=== PATIENT | male | born 1945 | race Caucasian/White ===

== ENCOUNTER 2018-09-22 12:38 | Inpatient (IN) | payer BC, MEDICARE ==
[~2018-09-22] VITALS: Ht 180.3 cm; Wt 95.6 kg
[~2018-09-22 12:38] MED LIST: ASPI-831 PO; ATOR10TA65 PO; FINA5TAB PO; METO-335 PO
[2018-09-22 12:40] VITALS: Ht 180.3 cm; Wt 95.6 kg
[2018-09-22] MEDS ORDERED: ACETAMINOPHEN 650 MG SUPP PR STA (12:48)
[2018-09-22] MEDS ORDERED: CEFEPIME 2GM/50 ML (PMX) 50 ML IVPB STA (12:48)
[2018-09-22] MEDS ORDERED: SODIUM CHLORIDE 0.9% 1L BAG IV* STA (12:48)
[2018-09-22] MEDS ORDERED: IBUPROFEN 800 MG TAB PO ONE (13:00)
[2018-09-22] MEDS ORDERED: VANCOMYCIN 1 GM (PMX) 250 ML IVPB ONE (13:00)
[2018-09-22] MEDS ORDERED: ACETAMINOPHEN 500 MG TAB PO STA (13:02)
[2018-09-22] MEDS ORDERED: ACETAMINOPHEN 500 MG TAB ONE (13:05)
[2018-09-22] MEDS ORDERED: IPRATROPIUM (NEB) 0.5 MG/2.5 ML AMP INH STA (13:21)
[2018-09-22] MEDS ORDERED: LEVALBUTEROL (NEB) 1.25 MG/0.5 ML AMP INH STA (13:21)
[2018-09-22] MEDS ORDERED: ATOR10TA65 PO (13:59)
[2018-09-22] MEDS ORDERED: METO-336 PO (14:00)
[2018-09-22] MEDS ORDERED: FINA5TAB4 PO (14:00)
[2018-09-22] MEDS ORDERED: ALFU10TA2 PO (14:01)
[2018-09-22] MEDS ORDERED: COMBIG5 LEFT EYE (14:02)
[2018-09-22] MEDS ORDERED: ROCKLATAN LEFT EYE (14:07)
[2018-09-22] MEDS ORDERED: ONDANSETRON 4 MG INJ IV PRN (14:30)
--- NOTE | 2018-09-22 15:15 | CONS ---
Assessment/Plan Assessment/Plan Hospital Course (Demo Recall) assessment/impression - sepsis due to CAP - CAP probably following viral bronchitis - acute hypoxic resp failure - L glaucoma - h/o R retinal detachment recommendations - pending: blood cultures x2 - ordered/reordered: lactic acid, procalcitonin, urine legionella antigen, mycoplasma serology, [employer] swab for RSV, custom viral panel - I recommend ceftriaxone and azithromycin (09/22/2018-) management d/w Pt, his , Dr. 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 On 09/15/2018 Pt started having fever as high as 103F, malaise, dry cough and dyspnea. Pt denies sick contact or recent travel prior to the onset of these Sx. He denies sinus congestion, ear pain, sore throat, pleuritic chest pain, sputum production or hemoptysis. Earlier this week, Pt was seen by his PMD, and was started taking PO Augmenin. He took three doses and came to see me in the office on 09/21/2018 (yesterday). At that point, Pt had temp 99.8F. His lab was significant for WBC 11.3 with 81.5% neutrophils, Hgb 12.3 and platelet of 323. His CXR showed atelectasis vs. earlier infiltrate at b/l base. I instructed Pt to continue taking PO Augmentin. This morning, Pt started to get worse: high fever again, dry cough and dyspnea. I instructed Pt to present at ER. Here he had 103.5F, acute hypoxic resp failure and WBC 13.2. Pt was given a dose of IV vancomycin and cefepime. I saw this Pt for continuity of care, and Dr. Ott kindly agreed to serve as his admitting physician. Constitutional: febrile, poor po Eyes: no complaints ENT: no complaints Respiratory: cough, shortness of breath; No pleuritic pain, No sputum Cardiovascular: no complaints Gastrointestinal: no complaints Genitourinary: no complaints Musculoskeletal: other (generalized myalgia) Skin: no complaints Neurologic: no complaints Lymphatic: no complaints Past Medical History Medical History: other (essential HTN, R retinal detachment, L glaucoma, BPH) Home Meds Reported Medications [Rocklatan ] 0.02% DROPS No Conflict Check, 1 DROP LEFT EYE DAILY 09/22/18 Brimonidine/Timolol* (Combigan*) 5 Ml Drops, 1 DROP LEFT EYE BID, BOTTLE 09/22/18 Alfuzosin Hcl* (Alfuzosin Hcl*) 10 Mg Tab.er.24h, 10 MG PO QHS, #30 TAB.SA 09/22/18 Metoprolol Succinate* (Toprol XL*) 100 Mg Tab.sr.24h, 100 MG PO DAILY, #30 TAB 09/22/18 Finasteride* (Finasteride*) 5 Mg Tablet, 5 MG PO DAILY, TAB 09/22/18 Atorvastatin Calcium (Atorvastatin Calcium) 10 Mg Tablet, 10 MG PO QHS, #30 TAB 09/22/18 Discontinued Reported Medications Atorvastatin Calcium (Atorvastatin Calcium) 10 Mg Tablet, 5 MG PO DAILY 10/07/13 Finasteride* (Proscar*) 5 Mg Tablet, 5 MG PO DAILY 10/07/13 Metoprolol Succinate* (Toprol XL*) 25 Mg Tab.sr.24h, 12.5 MG PO DAILY 10/07/13 Aspirin (Aspirin) 81 Mg Chew, 81 MG PO DAILY 10/07/13 Medications Current Medications Ondansetron HCl (Zofran Inj) 4 mg ER BRIDGE PRN IV NAUSEA/VOMITING; Start 09/22/18 at 14:30; Stop 09/23/18 at 14:29 Acetaminophen (Tylenol Tab) 650 mg ER BRIDGE PRN PO .MILD PAIN 1-3 OR TEMP; Start 09/22/18 at 14:30; Stop 09/23/18 at 14:29 Allergies: Coded Allergies: No Known Allergy (Unverified , 09/22/18) Social History Alcohol Use: occasionally Smoking Status: Never smoker Drug Use: none Other Social History 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 [employer] Exam/Review of Systems Exam Vitals Vital Signs Date Temp Pulse Resp B/P (MAP) Pulse Ox O2 O2 Flow FiO2 Time Delivery Rate 09/22/18 101.7 96 20 125/79 95 Nasal 2.0 14:56 (94) Cannula Constitutional: alert, oriented, well developed Psych: no complaints, nl mood/affect Head: normocephalic, atraumatic Eyes: nl lids, other (R cloudy cornea) ENMT: nl external ears & nose, nl nasal mucosa & septum, mucosa pink and moist Neck: supple, non-tender Respiratory: crackles/rales Cardiovascular: regular rate and rhythm, nl pulses Gastrointestinal: soft, non-tender; No distended Musculoskeletal: nl extremities to inspection Extremities: No edema Neurological: [employer] II-XII intact, nl mental status, nl speech Skin: nl turgor; No rash or lesions Results Result Diagram: 09/22/18 1259 09/22/18 1259 Results 24hrs Laboratory Tests Test 09/22/18 12:59 09/22/18 13:20 09/22/18 13:37 White Blood Count 13.2 H Red Blood Count 4.17 L Hemoglobin 12.1 L Hematocrit 35.8 L Mean Corpuscular Volume 85.9 Mean Corpuscular Hemoglobin 29.0 Mean Corpuscular 33.8 Hemoglobin Concent Red Cell Distribution Width 13.5 Platelet Count 351 Mean Platelet Volume 9.1 Immature Granulocytes % 2.000 H Neutrophils % 80.1 H Lymphocytes % 7.8 L Monocytes % 9.5 Eosinophils % 0.2 Basophils % 0.4 Nucleated Red Blood Cells % 0.0 Immature Granulocytes # 0.260 H Neutrophils # 10.6 H Lymphocytes # 1.0 Monocytes # 1.3 H Eosinophils # 0.0 Basophils # 0.1 Nucleated Red Blood Cells # 0.0 Prothrombin Time 15.2 H Prothrombin Time Ratio 1.2 INR International 1.19 Normalized Ratio Activated 35.9 H Partial Thromboplast Time Sodium Level 135 Potassium Level 4.0 Chloride Level 99 Carbon Dioxide Level 26 Anion Gap 10 Blood Urea Nitrogen 15 Creatinine 0.77 Est Glomerular Filtrat Rate mL/min Glucose Level 132 Calcium Level 8.2 L Total Bilirubin 0.6 Direct Bilirubin 0.00 Indirect Bilirubin 0.6 Aspartate Amino 45 Transf (AST/SGOT) Alanine 38 Aminotransferase (ALT/SGPT) Alkaline Phosphatase 111 Troponin I < 0.012 Total Protein 7.4 Albumin 3.7 Globulin 3.70 H Albumin/Globulin Ratio 1.00 Amylase Level 51 Lipase 25 POC Venous Lactate 1.2 Blood Gas Specimen Source Blood arterial Arterial Blood Date Drawn 09/22/2018 2:05:21 PM Arterial Blood pH 7.491 H (Temp corrected) Arterial Blood pCO2 28.2 L (Temp correct) Arterial Blood pO2 63.6 L (Temp corrected) Arterial Blood HCO3 21.1 L Arterial Blood Base Excess -1.2 Arterial Blood 93.2 L Oxygen Saturation Christofer Test N/A Arterial Blood Gas Right Radial Puncture Site Arterial 0.4 Blood Carboxyhemoglobin Arterial Blood Methemoglobin 0.3 Blood Gas A-a O2 117.2 H Differential Oxyhemoglobin Percent 92.5 L Blood Gas Temperature 37.0 Blood Gas Modality NASAL CANNULA FiO2 30.0 Blood Gas Notified Whom [place] Blood Gas Notified Time 09/22/2018 2:13:51 PM Medications Medication Current Medications Ondansetron HCl (Zofran Inj) 4 mg ER BRIDGE PRN IV NAUSEA/VOMITING; Start 09/22/18 at 14:30; Stop 09/23/18 at 14:29 Acetaminophen (Tylenol Tab) 650 mg ER BRIDGE PRN PO .MILD PAIN 1-3 OR TEMP; Start 09/22/18 at 14:30; Stop 09/23/18 at 14:29 ALANA CLEVELAND M.D. Sep 22, 2018 15:15
[2018-09-22] MEDS: AZITHROMYCIN 500 MG TAB PO SCH (15:57)
--- NOTE | 2018-09-22 16:33 | ERD ---
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 He indicates that his symptoms have been present for 1 week and progressively worsened. The patient was seen earlier this week by his primary care physician and started taking oral Augmentin. He had taken 3 doses and then went to see Dr. Shetty as his primary care physician was unavailable roughly 24 hours prior to arrival. At that time the patient was afebrile and had not taken any antipyretics. He had lab work that was performed. The patient was instructed by Dr. Shetty to continue his Augmentin. However this morning he awoke and stated his symptoms had significantly worsened and therefore he came to the emergency department to be further evaluated. His last dose of acetaminophen was 4 hours prior to arrival. He denies any recent travel or prolonged immobilization. He denies any chest pain or pressure no palpitations. He stated that the shortness of breath is worse with exertion. \ ROS All systems reviewed and are negative except as per history of present illness. Medications Home Meds Reported Medications [Arbelalatan ] 0.02% DROPS No Conflict Check, 1 DROP LEFT EYE DAILY 09/22/18 Brimonidine/Timolol* (Combigan*) 5 Ml Drops, 1 DROP LEFT EYE BID, BOTTLE 09/22/18 Alfuzosin Hcl* (Alfuzosin Hcl*) 10 Mg Tab.er.24h, 10 MG PO QHS, #30 TAB.SA 09/22/18 Metoprolol Succinate* (Toprol XL*) 100 Mg Tab.sr.24h, 100 MG PO DAILY, #30 TAB 09/22/18 Finasteride* (Finasteride*) 5 Mg Tablet, 5 MG PO DAILY, TAB 09/22/18 Atorvastatin Calcium (Atorvastatin Calcium) 10 Mg Tablet, 10 MG PO QHS, #30 TAB 09/22/18 Discontinued Reported Medications Atorvastatin Calcium (Atorvastatin Calcium) 10 Mg Tablet, 5 MG PO DAILY 10/07/13 Finasteride* (Proscar*) 5 Mg Tablet, 5 MG PO DAILY 10/07/13 Metoprolol Succinate* (Toprol XL*) 25 Mg Tab.sr.24h, 12.5 MG PO DAILY 10/07/13 Aspirin (Aspirin) 81 Mg Chew, 81 MG PO DAILY 10/07/13 Allergies Allergies: Coded Allergies: No Known Allergy (Unverified , 09/22/18) PMhx/Soc History of Surgery: Yes (eye surgeries) Anesthesia Reaction: No Hx Neurological Disorder: No Hx Respiratory Disorders: No Hx Cardiac Disorders: Yes (HTN, HIGH CHOL) Hx Psychiatric Problems: No Hx Miscellaneous Medical Probl: No Hx Alcohol Use: No Hx Substance Use: No Hx Tobacco Use: No Smoking Status: Never smoker Physical Exam Vitals Vital Signs Date Temp Pulse Resp B/P (MAP) Pulse Ox O2 O2 Flow FiO2 Time Delivery Rate 09/22/18 101.7 96 20 125/79 95 Nasal 2.0 14:56 (94) Cannula 09/22/18 87 17 93 Nasal 3.0 13:56 Cannula 09/22/18 Nasal 2.0 13:20 Cannula 09/22/18 103.5 104 22 185/87 86 12:40 (119) Physical Exam Constitutional:Well-developed. Well-nourished. In mild respiratory distress HEENT:Normocephalic. Atraumatic. Corneal clouding of right eye from previous retinal detachment. Left pupil is 3 mm and reactive to light. Moist mucous membranes.No tonsillar exudates. Neck: No nuchal rigidity. No lymphadenopathy. No posterior cervical spine tenderness or step-offs. Respiratory: Tachypneic. No rhonchi. Bilateral wheezing. Not using accessory muscles of respiration. Cardiovascular: Regular rate regular rhythm.No murmurs. No rubs were appreciated.S1, S2 normal. Distal pulses are palpable 2+ bilaterally. GI: Abdomen was soft. Nontender. Non Distended. No pulsatile abdominal masses or bruits. No rebound. No guarding. Bowel sounds were present and normal. Muscle skeletal: Full range of motion of both the upper and lower extremities bilaterally.Normal muscle tone.No assymetrical calf tenderness or swelling. Skin: No petechia, no purpura. No lesions on the palms or the soles of the feet. No maculopapular rash. NEURO: Patient was alert, awake, orientated x3.No facial droop. Gait observed and normal with no ataxia.Speech had regular rate and rhythm. No focal neurological deficits. Result Diagram: 09/22/18 1259 09/22/18 1259 Results 24 hrs Laboratory Tests Test 09/22/18 12:59 09/22/18 13:20 09/22/18 13:37 09/22/18 15:28 White Blood 13.2 10^3/ul Count Red Blood Count 4.17 10^6/ul Hemoglobin 12.1 g/dl Hematocrit 35.8 % Mean Corpuscular 85.9 fl Volume Mean Corpuscular 29.0 pg Hemoglobin Mean Corpuscular 33.8 g/dl Hemoglobin Kamille nt Red Cell 13.5 % Distribution Width Platelet Count 351 10^3/UL Mean Platelet 9.1 fl Volume Immature 2.000 % Granulocytes % Neutrophils % 80.1 % Lymphocytes % 7.8 % Monocytes % 9.5 % Eosinophils % 0.2 % Basophils % 0.4 % Nucleated Red 0.0 /100WBC Blood Cells % Immature 0.260 10^3/ul Granulocytes # Neutrophils # 10.6 10^3/ul Lymphocytes # 1.0 10^3/ul Monocytes # 1.3 10^3/ul Eosinophils # 0.0 10^3/ul Basophils # 0.1 10^3/ul Nucleated Red 0.0 10^3/ul Blood Cells # Prothrombin Time 15.2 Sec Prothrombin Time 1.2 Ratio INR 1.19 International Normalized Ratio Activated 35.9 Sec Partial Thrombop last Time Sodium Level 135 mmol/L Potassium Level 4.0 mmol/L Chloride Level 99 mmol/L Carbon Dioxide 26 mmol/L Level Anion Gap 10 Blood Urea 15 mg/dl Nitrogen Creatinine 0.77 mg/dl Est Glomerular mL/min Filtrat Rate mL/min Glucose Level 132 mg/dl Calcium Level 8.2 mg/dl Total Bilirubin 0.6 mg/dl Direct Bilirubin 0.00 mg/dl Indirect 0.6 mg/dl Bilirubin Aspartate Amino 45 IU/L Transf (AST/SGOT ) Alanine 38 IU/L Aminotransferase (ALT/SGPT) Alkaline 111 IU/L Phosphatase Troponin I < 0.012 ng/ml Total Protein 7.4 g/dl Albumin 3.7 g/dl Globulin 3.70 g/dl Albumin/Globulin 1.00 Ratio Amylase Level 51 U/L Lipase 25 U/L POC Venous 1.2 mmol/L Lactate Blood Gas Blood arterial Specimen Source Arterial Blood 09/22/2018 2:05: Date Drawn 21 PM Arterial Blood 7.491 pH (Temp corrected) Arterial Blood 28.2 mmhg pCO2 (Temp correct) Arterial Blood 63.6 mmHG pO2 (Temp corrected) Arterial Blood 21.1 mmol/L HCO3 Arterial Blood -1.2 mmol/L Base Excess Arterial Blood 93.2 mmHG Oxygen Saturatio n Christofer Test N/A Arterial Blood Right Radial Gas Puncture Site Arterial 0.4 % Blood Carboxyhem oglobin Arterial Blood 0.3 % Methemoglobin Blood Gas A-a O2 117.2 mmHg Differential Oxyhemoglobin 92.5 % Percent Blood Gas 37.0 C Temperature Blood Gas NASAL CANNULA Modality FiO2 30.0 % Blood Gas [place] Notified Whom Blood Gas 09/22/2018 2:13: Notified Time 51 PM Lactic Acid 1.1 mmol/L Level Test 09/22/18 16:00 Urine Color YELLOW Urine Clarity SLIGHTLY CLOUDY Urine pH 5.0 Urine Specific 1.027 Melfa Urine Ketones 1+ mg/dL Urine Nitrite NEGATIVE mg/dL Urine Bilirubin NEGATIVE mg/dL Urine NEGATIVE mg/dL Urobilinogen Urine Leukocyte NEGATIVE Valentina/ul Esterase Urine 3 /HPF Microscopic RBC Urine 3 /HPF Microscopic WBC Urine Bacteria FEW /HPF Urine Mucus FEW /HPF Urine Hemoglobin 1+ mg/dL Urine Glucose NEGATIVE mg/dL Urine Total 2+ mg/dl Protein Current Medications Medications Dose Sig/Juan C Start Time Status Last (Trade) Ordered Route PRN Stop Time Admin Dose Reason Admin Sodium 2,870 ml BOLUS OVER 2 09/22/18 DC 09/22/18 Chloride HOURS STAT 12:48 13:02 (NS) IV* 09/22/18 12:50 1,000 mg ONCE STAT 09/22/18 DC Acetaminophen MO 12:48 (Tylenol 09/22/18 13:03 Supp) Cefepime HCl 50 ml @ ONCE STAT 09/22/18 DC 09/22/18 100 mls/hr IVPB 12:48 13:13 09/22/18 13:17 Vancomycin 250 ml @ ONCE ONCE 09/22/18 DC 09/22/18 HCl 125 mls/hr IVPB 13:00 13:48 09/22/18 14:59 Ibuprofen 800 mg ONCE ONCE 09/22/18 DC 09/22/18 (Motrin) PO 13:00 13:12 09/22/18 13:01 1,000 mg ONCE STAT 09/22/18 DC 09/22/18 Acetaminophen PO 13:02 13:12 (Tylenol 09/22/18 13:05 Tab) 500 mg STK-MED 09/22/18 DC Acetaminophen ONCE .ROUTE 13:05 (Tylenol 09/22/18 13:06 Tab) 5 mg ONCE STAT 09/22/18 DC 09/22/18 Levalbuterol INH 13:21 13:55 (Xopenex 09/22/18 13:23 Neb) Ipratropium 1 mg ONCE STAT 09/22/18 DC 09/22/18 [place] IN[facility] 13:21 13:55 (Atrovent 09/22/18 13:23 0.02% (Neb)) Ondansetron 4 mg ER BRIDGE 09/22/18 HCl (Zofran PRN IV 14:30 Inj) NAUSEA/VOMITI 09/23/18 14:29 NG 650 mg ER BRIDGE 09/22/18 Acetaminophen PRN PO 14:30 (Tylenol .MILD PAIN 09/23/18 14:29 Tab) 1-3 OR TEMP Ceftriaxone 50 ml @ DAILY@2100 09/22/18 Sodium 100 mls/hr IVPB 21:00 500 mg DAILY PO 09/22/18 09/22/18 Azithromycin 15:30 15:57 (Zithromax) Procedures/MDM The patient presented to the emergency department with shortness of breath. My differential diagnosis included but was not limited to upper airway obstruction, CHF, pulmonary embolism, cardiac ischemia, pneumonia, pneumothorax, anemia, drug overdose, pulmonary edema, COPD or asthma. The patient initially arrived he did meet Sirs criteria. Patient was febrile tachypneic and there was concern for infectious process most likely respiratory related. Therefore obtained a chest radiograph which was reviewed by myself the radiologist did suggest a possible early infiltrate in the right basilar region. The patient had received antibiotics upon arrival in the emergency department. His lactic acid was normal however he did receive a 30 cc/kg bolus of normal saline. 12 Lead EKG tracing ordered and reviewed by myself showed: Normal sinus rhythm of 95 bpm and no arrhythmia. MO interval normal. QRS duration normal. No ST segment elevation No ST segment depression. No changes consistent with acute ischemia. The patient will be admitted under the care of Dr. Ott and Dr. Shetty did come to the bedside to further evaluate the patient. Influenza swab was negative. Blood cultures were obtained. My clinical suspicion was low for pulmonary embolism. The patient did receive a nebulizer treatment that had significant improvement of his respiratory distress. He also was given antipyretics including both acetaminophen and Motrin with resolution of his fever. Departure Diagnosis: Primary Impression: Pneumonia Pneumonia type: due to unspecified organism Laterality: right Lung location: unspecified part of lung Qualified Codes: J18.9 - Pneumonia, unspecified organism Additional Impression: Hypoxia Condition: Serious JO REARDON MD Sep 22, 2018 16:33
--- NOTE | 2018-09-22 19:20 | HP ---
DATE OF ADMISSION: 09/22/2018 CHIEF COMPLAINT: Cough, fever and chest congestion. HISTORY OF PRESENT ILLNESS: The patient is a 73-year-old gentleman well known to me from previous [place]. The patient's underlying medical condition include hypertension, dyslipidemia, BPH, and gla ucoma. The patient came to ER with cough, chest congestion and high fever. The patient reported katerin t on 09/15/2018, he started having fever as high as 103 accompanied by cough, fatigue, malaise and sh ortness of breath. The patient did not have any chest pain or hemoptysis. No reported headache, diz ziness or syncope. No history of sore throat. No history of abdominal pain. No history of nausea o r vomiting. No history of recent travel. No history of leg edema. No history of focal weakness. 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 The patient denied any history of numbness, tingling, or any weakness in any extremity. H is BPH symptoms are well controlled with the medications. REVIEW OF SYSTEMS: Total of 12 systems reviewed, all pertinent positive and negative findings have b een described in HPI. PHYSICAL EXAMINATION: VITAL SIGNS: The patient was seen in the ER and was noted to have temperature of 103.5, pulse 104 an d O2 sat was 86% on room air. HEENT: Atraumatic and normocephalic head. Right eye cornea is opaque. Left eye, no discharge or re dness. Nose and ears normal. Oropharynx clear. NECK: Supple, no mass, no thyromegaly. CHEST: Revealed a few scattered rhonchi and diminished breath sounds at the right base. CARDIOVASCULAR: S1, S2 normal, no murmur. ABDOMEN: Soft, nondistended and nontender. No organomegaly. EXTREMITIES: No edema. Pedal pulses palpable. SKIN: Without acute rash or ulcer. NEUROLOGIC: The patient is awake, alert, oriented with no gross focal deficit. LABORATORY DATA: Done today, WBC 13.2, hemoglobin 12.1 and platelet 251. Chemistry: Sodium 135, po tassium 4, BUN 15, creatinine 0.7, glucose 132, lactic acid 1.2 and calcium 8.2. AST 45, ALT 38 and alkaline phosphatase 111. Troponin negative. Albumin 3.7, amylase 51 and lipase 25. Chest x-ray po sitive for right lower lobe infiltrate. IMPRESSION: 1. Community-acquired pneumonia. The patient will be started on IV Rocephin and Zithromax and breat flores treatment. The patient refused DVT prophylaxis, including SCDs and Lovenox. 2. Hypertension. Continue Toprol-XL. 3. Dyslipidemia. Continue Lipitor. 4. Benign prostatic hypertrophy, symptoms controlled with the Proscar and Uroxatral. PLAN: We will add Tylenol for fever and mild pain. Infectious disease consult with Dr. Shetty has been requested. Plan of care discussed with Dr. Cherelle Taylor, ER physician. We will do followu p labs. Workup for atypical pneumonia including legionella and mycoplasma has been ordered. Blood c ultures were also ordered. The patient unfortunately is unable to expectorate. The patient did have influenza screen in the ER, which was negative for influenza A and B. Further recommendation will d epend on patient's hospital course and recommendation of Dr. Shetty. The patient did receive p.o. Augmentin as an outpatient prior to ER visit. We will continue to follow him. Dictated By: ART CALLEJAS/NTS Conf#: [id number] DID#: [id number]
[2018-09-22] MEDS: ALBUTEROL/IPRATROPIUM (NEB) 3 ML AMP HHN SCH (19:38)
[2018-09-22 20:00] VITALS: BP 133/73; PULSE 89; RESP 18
[2018-09-22] MEDS: CEFTRIAXONE 1 GM/50 ML (PMX) 50 ML IVPB SCH (21:03)
[2018-09-22] MEDS: ATORVASTATIN 10 MG TAB PO SCH (21:03)
[2018-09-22] MEDS: BRIMONIDINE 0.2%-TIMOLOL 0.5% 5ML OPH LEFT EYE SCH (21:03)
[2018-09-22] MEDS: ACETAMINOPHEN 325 MG TAB PO PRN (21:04)
[2018-09-22] MEDS: ALFUZOSIN (SR) 10 MG TAB PO SCH (22:25)
[2018-09-22 23:42] VITALS: BP 144/83; PULSE 91; RESP 18
[2018-09-23] MEDS: ALBUTEROL/IPRATROPIUM (NEB) 3 ML AMP HHN SCH ×6 (01:15→20:07)
[2018-09-23] MEDS: ALBUTEROL 0.083% (NEB) 2.5 MG/3 ML AMP HHN PRN ×2 (03:31→23:11)
[2018-09-23 04:00] VITALS: BP 157/74; PULSE 93; RESP 20
[2018-09-23] MEDS: ACETAMINOPHEN 325 MG TAB PO PRN ×2 (06:12→11:41)
[2018-09-23 07:26] VITALS: BP 134/65; PULSE 93; RESP 19
[2018-09-23] MEDS: FINASTERIDE 5 MG TAB PO SCH ×2 (08:43→11:41)
[2018-09-23] MEDS: BRIMONIDINE 0.2%-TIMOLOL 0.5% 5ML OPH LEFT EYE SCH ×2 (08:43→21:00)
[2018-09-23] MEDS: METOPROLOL (XL) 100 MG TAB PO SCH (08:44)
--- NOTE | 2018-09-23 09:54 | PN ---
Date/Time of Note Date/Time of Note DATE: 09/23/18 TIME: 09:53 Assessment/Plan VTE Prophylaxis Risk score (from Ns)>0 risk: 4 SCD applied (from [facility] [place] Yes Pharmacological prophylaxis: LMWH Lines/Catheters IV Catheter Type (from [facility] Saline Lock Assessment/Plan Hospital Course 1. Community-acquired pneumonia. The patient will be started on IV Rocephin and Zithromax and breathing treatment. The patient refused DVT prophylaxis, including SCDs and Lovenox. 2. Hypertension. Continue Toprol-XL. 3. Dyslipidemia. Continue Lipitor. 4. Benign prostatic hypertrophy, symptoms controlled with the Proscar and Uroxatral. Result Diagram: 09/22/18 1259 09/22/18 1259 Results 24hrs Laboratory Tests Test 09/22/18 12:59 09/22/18 13:20 09/22/18 13:37 09/22/18 15:28 White Blood 13.2 H Count Red Blood Count 4.17 L Hemoglobin 12.1 L Hematocrit 35.8 L Mean Corpuscular 85.9 Volume Mean Corpuscular 29.0 Hemoglobin Mean Corpuscular 33.8 Hemoglobin Kamille nt Red Cell 13.5 Distribution Width Platelet Count 351 Mean Platelet 9.1 Volume Immature 2.000 H Granulocytes % Neutrophils % 80.1 H Lymphocytes % 7.8 L Monocytes % 9.5 Eosinophils % 0.2 Basophils % 0.4 Nucleated Red 0.0 Blood Cells % Immature 0.260 H Granulocytes # Neutrophils # 10.6 H Lymphocytes # 1.0 Monocytes # 1.3 H Eosinophils # 0.0 Basophils # 0.1 Nucleated Red 0.0 Blood Cells # Prothrombin Time 15.2 H Prothrombin Time 1.2 Ratio INR 1.19 International Normalized Ratio Activated 35.9 H Partial Thrombop last Time Sodium Level 135 Potassium Level 4.0 Chloride Level 99 Carbon Dioxide 26 Level Anion Gap 10 Blood Urea 15 Nitrogen Creatinine 0.77 Est Glomerular Filtrat Rate mL/min Glucose Level 132 Calcium Level 8.2 L Total Bilirubin 0.6 Direct Bilirubin 0.00 Indirect 0.6 Bilirubin Aspartate Amino 45 Transf (AST/SGOT ) Alanine 38 Aminotransferase (ALT/SGPT) Alkaline 111 Phosphatase Troponin I < 0.012 Total Protein 7.4 Albumin 3.7 Globulin 3.70 H Albumin/Globulin 1.00 Ratio Amylase Level 51 Lipase 25 POC Venous 1.2 Lactate Blood Gas Blood arterial Specimen Source Arterial Blood 09/22/2018 2:05: Date Drawn 21 PM Arterial Blood 7.491 H pH (Temp corrected) Arterial Blood 28.2 L pCO2 (Temp correct) Arterial Blood 63.6 L pO2 (Temp corrected) Arterial Blood 21.1 L HCO3 Arterial Blood -1.2 Base Excess Arterial Blood 93.2 L Oxygen Saturatio n Christofer Test N/A Arterial Blood Right Radial Gas Puncture Site Arterial 0.4 Blood Carboxyhem oglobin Arterial Blood 0.3 Methemoglobin Blood Gas A-a O2 117.2 H Differential Oxyhemoglobin 92.5 L Percent Blood Gas 37.0 Temperature Blood Gas NASAL CANNULA Modality FiO2 30.0 Blood Gas KS Notified Whom Blood Gas 09/22/2018 2:13: Notified Time 51 PM Lactic Acid 1.1 Level Test 09/22/18 16:00 09/22/18 18:12 09/23/18 05:17 Urine Color YELLOW Urine Clarity SLIGHTLY CLOUDY A Urine pH 5.0 Urine Specific 1.027 Turner Urine Ketones 1+ H Urine Nitrite NEGATIVE Urine Bilirubin NEGATIVE Urine NEGATIVE Urobilinogen Urine Leukocyte NEGATIVE Esterase Urine 3 Microscopic RBC Urine 3 Microscopic WBC Urine Bacteria FEW A Urine Mucus FEW A Urine Hemoglobin 1+ H Urine Glucose NEGATIVE Urine Total 2+ H Protein Lactic Acid 1.0 Level Procalcitonin 0.16 H Subjective 24 Hr Interval Summary Free Text/Dictation Patient is breathing better Exam/Review of Systems Exam Vitals Vital Signs Date Temp Pulse Resp B/P (MAP) Pulse Ox O2 O2 Flow FiO2 Time Delivery Rate 09/23/18 98.8 93 19 134/65 96 07:26 (88) 09/23/18 Nasal 3.0 05:51 Cannula Constitutional: well developed Head: normocephalic, atraumatic Neck: supple Respiratory: clear to auscultation Cardiovascular: regular rate and rhythm Gastrointestinal: soft, non-tender Extremities: normal pulses Results Results 24hrs Laboratory Tests Test 09/22/18 12:59 09/22/18 13:20 09/22/18 13:37 09/22/18 15:28 White Blood 13.2 H Count Red Blood Count 4.17 L Hemoglobin 12.1 L Hematocrit 35.8 L Mean Corpuscular 85.9 Volume Mean Corpuscular 29.0 Hemoglobin Mean Corpuscular 33.8 Hemoglobin Kamille nt Red Cell 13.5 Distribution Width Platelet Count 351 Mean Platelet 9.1 Volume Immature 2.000 H Granulocytes % Neutrophils % 80.1 H Lymphocytes % 7.8 L Monocytes % 9.5 Eosinophils % 0.2 Basophils % 0.4 Nucleated Red 0.0 Blood Cells % Immature 0.260 H Granulocytes # Neutrophils # 10.6 H Lymphocytes # 1.0 Monocytes # 1.3 H Eosinophils # 0.0 Basophils # 0.1 Nucleated Red 0.0 Blood Cells # Prothrombin Time 15.2 H Prothrombin Time 1.2 Ratio INR 1.19 International Normalized Ratio Activated 35.9 H Partial Thrombop last Time Sodium Level 135 Potassium Level 4.0 Chloride Level 99 Carbon Dioxide 26 Level Anion Gap 10 Blood Urea 15 Nitrogen Creatinine 0.77 Est Glomerular Filtrat Rate mL/min Glucose Level 132 Calcium Level 8.2 L Total Bilirubin 0.6 Direct Bilirubin 0.00 Indirect 0.6 Bilirubin Aspartate Amino 45 Transf (AST/SGOT ) Alanine 38 Aminotransferase (ALT/SGPT) Alkaline 111 Phosphatase Troponin I < 0.012 Total Protein 7.4 Albumin 3.7 Globulin 3.70 H Albumin/Globulin 1.00 Ratio Amylase Level 51 Lipase 25 POC Venous 1.2 Lactate Blood Gas Blood arterial Specimen Source Arterial Blood 09/22/2018 2:05: Date Drawn 21 PM Arterial Blood 7.491 H pH (Temp corrected) Arterial Blood 28.2 L pCO2 (Temp correct) Arterial Blood 63.6 L pO2 (Temp corrected) Arterial Blood 21.1 L HCO3 Arterial Blood -1.2 Base Excess Arterial Blood 93.2 L Oxygen Saturatio n Christofer Test N/A Arterial Blood Right Radial Gas Puncture Site Arterial 0.4 Blood Carboxyhem oglobin Arterial Blood 0.3 Methemoglobin Blood Gas A-a O2 117.2 H Differential Oxyhemoglobin 92.5 L Percent Blood Gas 37.0 Temperature Blood Gas NASAL CANNULA Modality FiO2 30.0 Blood Gas PR Notified Whom Blood Gas 09/22/2018 2:13: Notified Time 51 PM Lactic Acid 1.1 Level Test 09/22/18 16:00 09/22/18 18:12 09/23/18 05:17 Urine Color YELLOW Urine Clarity SLIGHTLY CLOUDY A Urine pH 5.0 Urine Specific 1.027 Turner Urine Ketones 1+ H Urine Nitrite NEGATIVE Urine Bilirubin NEGATIVE Urine NEGATIVE Urobilinogen Urine Leukocyte NEGATIVE Esterase Urine 3 Microscopic RBC Urine 3 Microscopic WBC Urine Bacteria FEW A Urine Mucus FEW A Urine Hemoglobin 1+ H Urine Glucose NEGATIVE Urine Total 2+ H Protein Lactic Acid 1.0 Level Procalcitonin 0.16 H Medications Medication Current Medications Ondansetron HCl (Zofran Inj) 4 mg ER BRIDGE PRN IV NAUSEA/VOMITING; Start 09/22/18 at 14:30; Stop 09/23/18 at 14:29 Acetaminophen (Tylenol Tab) 650 mg ER BRIDGE PRN PO .MILD PAIN 1-3 OR TEMP Last administered on 09/23/18 06:12; Admin Dose 650 MG; Start 09/22/18 at 14:30; Stop 09/23/18 at 14:29 Ceftriaxone Sodium 50 ml @ 100 mls/hr DAILY@2100 IVPB Last administered on 09/22/18 21:03; Admin Dose 100 MLS/HR; Start 09/22/18 at 21:00 Azithromycin (Zithromax) 500 mg DAILY PO Last administered on 09/22/18 15:57; Admin Dose 500 MG; Start 09/22/18 at 15:30 Acetaminophen (Tylenol Tab) 500 mg Q4H PRN PO MILD PAIN(1-3)OR ELEVATED TEMP; Start 09/22/18 at 18:30 Alfuzosin HCl (Uroxatral) 10 mg QHS PO Last administered on 09/22/18 22:25; Admin Dose 10 MG; Start 09/22/18 at 21:00 Atorvastatin Calcium (Lipitor) 10 mg QHS PO Last administered on 09/22/18 21:03; Admin Dose 10 MG; Start 09/22/18 at 21:00 Brimonidine/ Timolol (Combigan Oph) 1 drop BID LEFT EYE Last administered on 09/23/18 08:43; Admin Dose 1 DROP; Start 09/22/18 at 21:00 Finasteride (Proscar) 5 mg DAILY PO Last administered on 09/23/18 08:43; Admin Dose 5 MG; Start 09/23/18 at 09:00 Metoprolol Succinate (Toprol Xl) 100 mg DAILY PO Last administered on 09/23/18 08:44; Admin Dose 100 MG; Start 09/23/18 at 09:00 Albuterol/ Ipratropium (Duoneb) 3 ml Q4H RESP THERAPY HHN Last administered on 6/29/19at 08:40; Admin Dose 3 ML; Start 09/23/18 at 05:00 Albuterol (Proventil 0.083% (Neb)) 2.5 mg Q2H RESP THERAPY PRN HHN SHORTNESS OF BREATH Last administered on 09/23/18at 03:31; Admin Dose 2.5 MG; Start 09/23/18 at 02:00 LOLITA YANG Sep 23, 2018 09:54
[2018-09-23] MEDS: AZITHROMYCIN 500 MG TAB PO SCH (10:50)
[2018-09-23 11:26] VITALS: BP 148/78; PULSE 82; RESP 19
[2018-09-23 15:23] VITALS: BP 161/83; PULSE 82; RESP 18
--- NOTE | 2018-09-23 17:07 | CONS ---
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 LINEAR EDITOR swab for RSV, custom viral panel - I recommend ceftriaxone and azithromycin (09/22/2018-) - will order stool softener prn per Pt's request management d/w Pt, his RN Iman Consultation Date/Type/Reason Admit Date/Time Sep 22, 2018 at 14:56 Initial Consult Date 09/22/18 Type of Consult ID Requesting Provider: JO REARDON MD Date/Time of Note DATE: 09/23/18 TIME: 17:07 24 HR Interval Summary Constitutional: improved, poor po Detailed Summary Eyes: other (R retinal detachment, L glaucoma) ENT: no complaints Respiratory: cough, shortness of breath, wheezing; No pain, No pleuritic pain, No sputum Cardiovascular: no complaints Gastrointestinal: constipation Genitourinary: no complaints Musculoskeletal: no complaints Skin: no complaints Neurologic: no complaints Exam/Review of Systems Exam Vitals Vital Signs Date Temp Pulse Resp B/P (MAP) Pulse Ox O2 O2 Flow FiO2 Time Delivery Rate 09/23/18 99.2 82 18 161/83 95 15:23 (109) 09/23/18 Venti Mask 12.0 12:15 Constitutional: alert, oriented, well developed Psych: no complaints, nl mood/affect Head: normocephalic, atraumatic Eyes: other (R retinal detachment) ENMT: nl external ears & nose, nl nasal mucosa & septum, mucosa pink and moist Neck: supple Respiratory: crackles/rales, wheezing Cardiovascular: regular rate and rhythm, nl pulses; No edema Gastrointestinal: soft; No distended, No tender Musculoskeletal: nl extremities to inspection Neurological: OWNER/PHOTOGRAPHER II-XII intact, nl mental status, nl speech, nl strength Skin: nl turgor; No rash or lesions Results Result Diagram: 09/22/18 1259 09/22/18 1259 Results 24hrs Laboratory Tests Test 09/22/18 18:12 09/23/18 05:17 Lactic Acid Level 1.0 Procalcitonin 0.16 H Medications Medication Current Medications Ceftriaxone Sodium 50 ml @ 100 mls/hr DAILY@2100 IVPB Last administered on 09/22/18 21:03; Admin Dose 100 MLS/HR; Start 09/22/18 at 21:00 Azithromycin (Zithromax) 500 mg DAILY PO Last administered on 09/23/18 10:50; Admin Dose 500 MG; Start 09/22/18 at 15:30 Acetaminophen (Tylenol Tab) 500 mg Q4H PRN PO MILD PAIN(1-3)OR ELEVATED TEMP; Start 09/22/18 at 18:30 Alfuzosin HCl (Uroxatral) 10 mg QHS PO Last administered on 09/22/18 22:25; Admin Dose 10 MG; Start 09/22/18 at 21:00 Atorvastatin Calcium (Lipitor) 10 mg QHS PO Last administered on 09/22/18 21:03; Admin Dose 10 MG; Start 09/22/18 at 21:00 Brimonidine/ Timolol (Combigan Oph) 1 drop BID LEFT EYE Last administered on 09/23/18 08:43; Admin Dose 1 DROP; Start 09/22/18 at 21:00 Finasteride (Proscar) 5 mg DAILY PO Last administered on 09/23/18 11:41; Admin Dose 5 MG; Start 09/23/18 at 09:00 Metoprolol Succinate (Toprol Xl) 100 mg DAILY PO Last administered on 09/23/18 08:44; Admin Dose 100 MG; Start 09/23/18 at 09:00 Albuterol/ Ipratropium (Duoneb) 3 ml Q4H RESP THERAPY HHN Last administered on 09/23/18 16:01; Admin Dose 3 ML; Start 09/23/18 at 05:00 Albuterol (Proventil 0.083% (Neb)) 2.5 mg Q2H RESP THERAPY PRN HHN SHORTNESS OF BREATH Last administered on 09/23/18 03:31; Admin Dose 2.5 MG; Start 09/23/18 at 02:00 ALANA CLEVELAND M.D. Sep 23, 2018 17:07
[2018-09-23] MEDS ORDERED: DOCUSATE SODIUM 100 MG CAP PO PRN (17:30)
[2018-09-23 20:00] VITALS: BP 156/80; PULSE 90; RESP 18
[2018-09-23] MEDS: ATORVASTATIN 10 MG TAB PO SCH (20:49)
[2018-09-23] MEDS: ALFUZOSIN (SR) 10 MG TAB PO SCH (20:49)
[2018-09-23] MEDS: CEFTRIAXONE 1 GM/50 ML (PMX) 50 ML IVPB SCH (20:49)
[2018-09-23] MEDS: ACETAMINOPHEN 500 MG TAB PO PRN (20:53)
[2018-09-23 23:15] VITALS: PULSE 80
[2018-09-24] VITALS (8 sets, daily range): BP systolic 134–160; BP diastolic 63–80; PULSE 71–88; RESP 17–20
[2018-09-24] MEDS: ALBUTEROL/IPRATROPIUM (NEB) 3 ML AMP HHN SCH ×6 (00:53→20:36)
[2018-09-24] MEDS: ALBUTEROL 0.083% (NEB) 2.5 MG/3 ML AMP HHN PRN ×3 (03:20→15:28)
[2018-09-24] MEDS: ACETAMINOPHEN 500 MG TAB PO PRN ×2 (04:01→08:47)
[2018-09-24] MEDS: AZITHROMYCIN 500 MG TAB PO SCH (08:40)
[2018-09-24] MEDS: FINASTERIDE 5 MG TAB PO SCH (08:41)
[2018-09-24] MEDS: METOPROLOL (XL) 100 MG TAB PO SCH (08:42)
[2018-09-24] MEDS: BRIMONIDINE 0.2%-TIMOLOL 0.5% 5ML OPH LEFT EYE SCH ×2 (08:43→21:01)
[2018-09-24] MEDS ORDERED: IBUPROFEN 400 MG TAB PO PRN (11:00)
--- NOTE | 2018-09-24 11:00 | PN ---
Date/Time of Note Date/Time of Note DATE: 09/24/18 TIME: 11:00 Assessment/Plan VTE Prophylaxis Risk score (from Ns)>0 risk: 3 SCD applied (from Ns): Yes Pharmacological prophylaxis: LMWH Lines/Catheters IV Catheter Type (from [facility]): Saline Lock Assessment/Plan Hospital Course 1. Community-acquired pneumonia. The patient will be started on IV Rocephin and Zithromax and breathing treatment. The patient refused DVT prophylaxis, including SCDs and Lovenox. 2. Hypertension. Continue Toprol-XL. 3. Dyslipidemia. Continue Lipitor. 4. Benign prostatic hypertrophy, symptoms controlled with the Proscar and Uroxatral. Result Diagram: 09/24/185 09/24/18 0455 Results 24hrs Laboratory Tests Test 09/24/18 04:55 White Blood Count 10.6 Red Blood Count 3.43 L Hemoglobin 10.2 L Hematocrit 30.0 L Mean Corpuscular Volume 87.5 Mean Corpuscular Hemoglobin 29.7 Mean Corpuscular Hemoglobin Concent 34.0 Red Cell Distribution Width 13.9 Platelet Count 284 Mean Platelet Volume 9.0 Immature Granulocytes % 3.200 H Neutrophils % 71.7 Lymphocytes % 11.9 L Monocytes % 11.9 H Eosinophils % 0.9 Basophils % 0.4 Nucleated Red Blood Cells % 0.0 Immature Granulocytes # 0.340 H Neutrophils # 7.6 H Lymphocytes # 1.3 Monocytes # 1.3 H Eosinophils # 0.1 Basophils # 0.0 Nucleated Red Blood Cells # 0.0 Sodium Level 138 Potassium Level 3.8 Chloride Level 103 Carbon Dioxide Level 27 Anion Gap 8 Blood Urea Nitrogen 10 Creatinine 0.65 Est Glomerular Filtrat Rate mL/min Glucose Level 115 Calcium Level 7.7 L Subjective 24 Hr Interval Summary Free Text/Dictation Patient is breathing better but needs something to help with cough. Exam/Review of Systems Exam Vitals Vital Signs Date Temp Pulse Resp B/P (MAP) Pulse Ox O2 O2 Flow FiO2 Time Delivery Rate 09/24/18 83 18 98 Nasal 4.0 10:43 Cannula 09/24/18 97.9 140/73 07:17 (95) 09/24/18 40 00:53 Intake and Output 09/23/18 09/23/18 09/24/18 1414:59 22:59 06:59 IntakeIntake Total 610 ml 600 ml OutputOutput Total 750 ml BalanceBalance 610 ml 600 ml -750 ml Constitutional: well developed Head: normocephalic, atraumatic Neck: supple Respiratory: diminished breath sounds Cardiovascular: regular rate and rhythm Gastrointestinal: soft, non-tender Extremities: normal pulses Results Results 24hrs Laboratory Tests Test 09/24/18 04:55 White Blood Count 10.6 Red Blood Count 3.43 L Hemoglobin 10.2 L Hematocrit 30.0 L Mean Corpuscular Volume 87.5 Mean Corpuscular Hemoglobin 29.7 Mean Corpuscular Hemoglobin Concent 34.0 Red Cell Distribution Width 13.9 Platelet Count 284 Mean Platelet Volume 9.0 Immature Granulocytes % 3.200 H Neutrophils % 71.7 Lymphocytes % 11.9 L Monocytes % 11.9 H Eosinophils % 0.9 Basophils % 0.4 Nucleated Red Blood Cells % 0.0 Immature Granulocytes # 0.340 H Neutrophils # 7.6 H Lymphocytes # 1.3 Monocytes # 1.3 H Eosinophils # 0.1 Basophils # 0.0 Nucleated Red Blood Cells # 0.0 Sodium Level 138 Potassium Level 3.8 Chloride Level 103 Carbon Dioxide Level 27 Anion Gap 8 Blood Urea Nitrogen 10 Creatinine 0.65 Est Glomerular Filtrat Rate mL/min Glucose Level 115 Calcium Level 7.7 L Medications Medication Current Medications Ceftriaxone Sodium 50 ml @ 100 mls/hr DAILY@2100 IVPB Last administered on 08/27 20:49; Admin Dose 100 MLS/HR; Start 09/22/18 at 21:00 Azithromycin (Zithromax) 500 mg DAILY PO Last administered on 09/24/18 08:40; Admin Dose 500 MG; Start 09/22/18 at 15:30 Acetaminophen (Tylenol Tab) 500 mg Q4H PRN PO MILD PAIN(1-3)OR ELEVATED TEMP Last administered on 09/24/18 08:47; Admin Dose 500 MG; Start 09/22/18 at 18:30 Alfuzosin HCl (Uroxatral) 10 mg QHS PO Last administered on 09/23/18 20:49; Admin Dose 10 MG; Start 09/22/18 at 21:00 Atorvastatin Calcium (Lipitor) 10 mg QHS PO Last administered on 09/23/18 20:49; Admin Dose 10 MG; Start 09/22/18 at 21:00 Brimonidine/ Timolol (Combigan Oph) 1 drop BID LEFT EYE Last administered on 09/24/18 08:43; Admin Dose 1 DROP; Start 09/22/18 at 21:00 Finasteride (Proscar) 5 mg DAILY PO Last administered on 09/24/18 08:41; Admin Dose 5 MG; Start 09/23/18 at 09:00 Metoprolol Succinate (Toprol Xl) 100 mg DAILY PO Last administered on 09/24/18 08:42; Admin Dose 100 MG; Start 09/23/18 at 09:00 Albuterol/ Ipratropium (Duoneb) 3 ml Q4H RESP THERAPY HHN Last administered on 09/24/18 08:08; Admin Dose 3 ML; Start 09/23/18 at 05:00 Albuterol (Proventil 0.083% (Neb)) 2.5 mg Q2H RESP THERAPY PRN HHN SHORTNESS OF BREATH Last administered on 09/24/18 10:42; Admin Dose 2.5 MG; Start 09/23/18 at 02:00 Docusate Sodium (Colace) 100 mg HS PRN PO constipation Last administered on 09/23/18 20:49; Admin Dose 100 MG; Start 09/23/18 at 17:30 LOLITA YANG Sep 24, 2018 11:00
[2018-09-24] MEDS: GUAIFENESIN/DM 5ML CUP PO PRN (17:06)
[2018-09-24] MEDS: ALFUZOSIN (SR) 10 MG TAB PO SCH (21:01)
[2018-09-24] MEDS: CEFTRIAXONE 1 GM/50 ML (PMX) 50 ML IVPB SCH (21:01)
[2018-09-24] MEDS: ATORVASTATIN 10 MG TAB PO SCH (21:01)
--- NOTE | 2018-09-24 21:18 | CONS ---
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, custom viral panel - ordered: CXR in AM - I recommend ceftriaxone and azithromycin (09/22/2018-) management d/w Pt, his RN [place] Consultation Date/Type/Reason Admit Date/Time Sep 22, 2018 at 14:56 Initial Consult Date 09/22/18 Type of Consult ID Requesting Provider: JO REARDON MD Date/Time of Note DATE: 09/24/18 TIME: 21:16 24 HR Interval Summary Constitutional: improved Detailed Summary Eyes: no complaints ENT: no complaints Respiratory: cough, sputum (clear); No pain, No shortness of breath, No wheezing Cardiovascular: no complaints Gastrointestinal: no complaints Genitourinary: no complaints Musculoskeletal: no complaints Skin: no complaints Neurologic: no complaints Exam/Review of Systems Exam Vitals Vital Signs Date Temp Pulse Resp B/P (MAP) Pulse Ox O2 O2 Flow FiO2 Time Delivery Rate 09/24/18 86 18 97 Nasal 4.0 20:38 Cannula 09/24/18 98.1 134/63 19:35 (86) 09/24/18 40 00:53 Intake and Output 09/23/18 09/23/18 09/24/18 1515:00 23:00 07:00 IntakeIntake Total 610 ml 600 ml OutputOutput Total 750 ml BalanceBalance 610 ml 600 ml -750 ml Constitutional: alert, oriented, well developed Psych: no complaints, nl mood/affect Head: normocephalic, atraumatic Eyes: nl lids, other (R: s/p retinal detachment) ENMT: nl external ears & nose, nl nasal mucosa & septum, mucosa pink and moist Neck: supple, non-tender Respiratory: crackles/rales Cardiovascular: regular rate and rhythm, nl pulses Gastrointestinal: soft, non-tender; No distended Musculoskeletal: nl extremities to inspection Extremities: normal pulses Neurological: TYPING SECRETARY II-XII intact, nl mental status, nl speech, nl strength Skin: nl turgor; No rash or lesions Results Result Diagram: 09/24/18 0455 09/24/18 0455 Results 24hrs Laboratory Tests Test 09/24/18 04:55 White Blood Count 10.6 Red Blood Count 3.43 L Hemoglobin 10.2 L Hematocrit 30.0 L Mean Corpuscular Volume 87.5 Mean Corpuscular Hemoglobin 29.7 Mean Corpuscular Hemoglobin Concent 34.0 Red Cell Distribution Width 13.9 Platelet Count 284 Mean Platelet Volume 9.0 Immature Granulocytes % 3.200 H Neutrophils % 71.7 Lymphocytes % 11.9 L Monocytes % 11.9 H Eosinophils % 0.9 Basophils % 0.4 Nucleated Red Blood Cells % 0.0 Immature Granulocytes # 0.340 H Neutrophils # 7.6 H Lymphocytes # 1.3 Monocytes # 1.3 H Eosinophils # 0.1 Basophils # 0.0 Nucleated Red Blood Cells # 0.0 Sodium Level 138 Potassium Level 3.8 Chloride Level 103 Carbon Dioxide Level 27 Anion Gap 8 Blood Urea Nitrogen 10 Creatinine 0.65 Est Glomerular Filtrat Rate mL/min Glucose Level 115 Calcium Level 7.7 L Medications Medication Current Medications Ceftriaxone Sodium 50 ml @ 100 mls/hr DAILY@2100 IVPB Last administered on 09/24/18 21:01; Admin Dose 100 MLS/HR; Start 09/22/18 at 21:00 Azithromycin (Zithromax) 500 mg DAILY PO Last administered on 09/24/18 08:40; Admin Dose 500 MG; Start 09/22/18 at 15:30 Acetaminophen (Tylenol Tab) 500 mg Q4H PRN PO MILD PAIN(1-3)OR ELEVATED TEMP Last administered on 09/24/18 08:47; Admin Dose 500 MG; Start 09/22/18 at 18:30 Alfuzosin HCl (Uroxatral) 10 mg QHS PO Last administered on 09/24/18 21:01; Admin Dose 10 MG; Start 09/22/18 at 21:00 Atorvastatin Calcium (Lipitor) 10 mg QHS PO Last administered on 09/24/18 21:01; Admin Dose 10 MG; Start 09/22/18 at 21:00 Brimonidine/ Timolol (Combigan Oph) 1 drop BID LEFT EYE Last administered on 09/24/18 21:01; Admin Dose 1 DROP; Start 09/22/18 at 21:00 Finasteride (Proscar) 5 mg DAILY PO Last administered on 09/24/18 08:41; Admin Dose 5 MG; Start 09/23/18 at 09:00 Metoprolol Succinate (Toprol Xl) 100 mg DAILY PO Last administered on 09/24/18 08:42; Admin Dose 100 MG; Start 09/23/18 at 09:00 Albuterol/ Ipratropium (Duoneb) 3 ml Q4H RESP THERAPY HHN Last administered on 09/24/18 20:36; Admin Dose 3 ML; Start 09/23/18 at 05:00 Albuterol (Proventil 0.083% (Neb)) 2.5 mg Q2H RESP THERAPY PRN HHN SHORTNESS OF BREATH Last administered on 09/24/18 15:28; Admin Dose 2.5 MG; Start 09/23/18 at 02:00 Docusate Sodium (Colace) 100 mg HS PRN PO constipation Last administered on 09/23/18 20:49; Admin Dose 100 MG; Start 09/23/18 at 17:30 Guaifenesin/ Dextromethorphan (Robitussin Dm Liquid Cup) 10 ml Q4H PRN PO cough Last administered on 09/24/18 17:06; Admin Dose 10 ML; Start 09/24/18 at 11:00 Ibuprofen (Motrin) 400 mg Q6H PRN PO MILD PAIN(1-3) OR TEMP>38C; Start 09/24/18 at 11:00 ALANA CLEVELAND M.D. Sep 24, 2018 21:18
[2018-09-25] MEDS: ALBUTEROL/IPRATROPIUM (NEB) 3 ML AMP HHN SCH ×6 (00:36→20:47)
[2018-09-25] MEDS: ACETAMINOPHEN 500 MG TAB PO PRN (01:01)
[2018-09-25] MEDS: GUAIFENESIN/DM 5ML CUP PO PRN ×3 (01:01→22:09)
[2018-09-25 03:31] VITALS: BP 134/64; PULSE 72; RESP 18
[2018-09-25 07:50] VITALS: BP 164/85; PULSE 80; RESP 18
[2018-09-25] MEDS: AZITHROMYCIN 500 MG TAB PO SCH (08:31)
[2018-09-25] MEDS: FINASTERIDE 5 MG TAB PO SCH (08:31)
[2018-09-25] MEDS: BRIMONIDINE 0.2%-TIMOLOL 0.5% 5ML OPH LEFT EYE SCH ×2 (08:32→17:08)
[2018-09-25] MEDS: METOPROLOL (XL) 100 MG TAB PO SCH (08:32)
--- NOTE | 2018-09-25 10:10 | CONS ---
Assessment/Plan Assessment/Plan Hospital Course (Demo Recall) assessment/impression - severe sepsis due to CAP - fever and leukocytosis resolved - RLL CAP probably following viral bronchitis - acute hypoxic respiratory failure - on O2 via NC - L glaucoma - h/o R retinal detachment - constipation, resolved recommendations - so far negative: blood cultures x2, urine legionella antigen, influenza, parainfluenza, RSV, adenovirus - pending results: mycoplasma serology - continue ceftriaxone and azithromycin (09/22/2018-) - serial CXR Management d/w patient, CHERRY Rai, and with Dr. Winn Consultation Date/Type/Reason Admit Date/Time Sep 22, 2018 at 14:56 Initial Consult Date 09/22/18 Type of Consult Infectious Disease Requesting Provider: JO REARDON MD Date/Time of Note DATE: 09/25/18 TIME: 09:57 24 HR Interval Summary Free Text/Dictation Denies pain, SOB, n/v/d, dysuria. Had normal BM this AM. Admits to productive cough with clear phlegm. Exam/Review of Systems Exam Vitals Vital Signs Date Temp Pulse Resp B/P (MAP) Pulse Ox O2 O2 Flow FiO2 Time Delivery Rate 09/25/18 87 18 94 Nasal 6.0 09:03 Cannula 09/25/18 97.7 164/85 07:50 (111) 09/24/18 40 00:53 Intake and Output 09/24/18 09/24/18 09/25/18 1515:00 23:00 07:00 IntakeIntake Total 360 ml 600 ml 300 ml OutputOutput Total 350 ml 201 ml BalanceBalance 10 ml 399 ml 300 ml Constitutional: alert, oriented, well developed Psych: no complaints, nl mood/affect Head: normocephalic, atraumatic Eyes: nl lids, other (R eye opacity h/o retinal detachment) ENMT: nl external ears & nose, nl lips & teeth, nl nasal mucosa & septum, mucosa pink and moist Neck: supple, non-tender Respiratory: crackles/rales (RLL), other (O2 at 4.5L via NC - likely recently lowered by RT per pt) Cardiovascular: regular rate and rhythm, nl pulses Gastrointestinal: soft, non-tender Genitourinary - Male: other (No Salomon; bedside urinal with yellow urine) Musculoskeletal: nl extremities to inspection Extremities: normal pulses Neurological: TYPER II-XII intact, nl mental status, nl speech, nl strength Skin: nl turgor; No rash or lesions Results Result Diagram: 09/24/1845409/24/18454 Results 24hrs Laboratory Tests Test 09/25/18 09:52 Lab Scanned Report REFERENCE LAB Imaging Imaging CXR 09/25/2018: IMPRESSION: There is right lung base consolidation. There are increased interstitial markings. Follow-up to resolution recommended to exclude underlying neoplasm. Medications Medication Current Medications Ceftriaxone Sodium 50 ml @ 100 mls/hr DAILY@2100 IVPB Last administered on 09/24/18 21:01; Admin Dose 100 MLS/HR; Start 09/22/18 at 21:00 Azithromycin (Zithromax) 500 mg DAILY PO Last administered on 09/25/18 08:31; Admin Dose 500 MG; Start 09/22/18 at 15:30 Acetaminophen (Tylenol Tab) 500 mg Q4H PRN PO MILD PAIN(1-3)OR ELEVATED TEMP Last administered on 09/25/18 01:01; Admin Dose 500 MG; Start 09/22/18 at 18:30 Alfuzosin HCl (Uroxatral) 10 mg QHS PO Last administered on 09/24/18 21:01; Admin Dose 10 MG; Start 09/22/18 at 21:00 Atorvastatin Calcium (Lipitor) 10 mg QHS PO Last administered on 09/24/18 21:01; Admin Dose 10 MG; Start 09/22/18 at 21:00 Brimonidine/ Timolol (Combigan Oph) 1 drop BID LEFT EYE Last administered on 09/25/18 08:32; Admin Dose 1 DROP; Start 09/22/18 at 21:00 Finasteride (Proscar) 5 mg DAILY PO Last administered on 09/25/18 08:31; Admin Dose 5 MG; Start 09/23/18 at 09:00 Metoprolol Succinate (Toprol Xl) 100 mg DAILY PO Last administered on 09/25/18 08:32; Admin Dose 100 MG; Start 09/23/18 at 09:00 Albuterol/ Ipratropium (Duoneb) 3 ml Q4H RESP THERAPY HHN Last administered on 09/25/18 08:57; Admin Dose 3 ML; Start 09/23/18 at 05:00 Albuterol (Proventil 0.083% (Neb)) 2.5 mg Q2H RESP THERAPY PRN HHN SHORTNESS OF BREATH Last administered on 09/24/18at 15:28; Admin Dose 2.5 MG; Start 09/23/18 at 02:00 Docusate Sodium (Colace) 100 mg HS PRN PO constipation Last administered on 09/23/18at 20:49; Admin Dose 100 MG; Start 09/23/18 at 17:30 Guaifenesin/ Dextromethorphan (Robitussin Dm Liquid Cup) 10 ml Q4H PRN PO cough Last administered on 09/25/18at 01:01; Admin Dose 10 ML; Start 09/24/18 at 11:00 Ibuprofen (Motrin) 400 mg Q6H PRN PO MILD PAIN(1-3) OR TEMP>38C; Start 09/24/18 at 11:00 JORGITO BELLO NP Sep 25, 2018 10:07
[2018-09-25 15:54] VITALS: BP 154/82; PULSE 71; RESP 18
--- NOTE | 2018-09-25 18:01 | PN ---
Date/Time of Note Date/Time of Note DATE: 09/25/18 TIME: 17:56 Assessment/Plan VTE Prophylaxis Risk score (from Ns)>0 risk: 3 SCD applied (from Ns): Yes Pharmacological prophylaxis: LMWH Lines/Catheters IV [facility]ter [facility]from [facility] Saline Lock Assessment/Plan Hospital Course Pt complains of cough, denies fever, denies SOB. Assessment/Plan - Community-acquired pneumonia. Continue Rocephin and Zithromax. Continue oxygen supplementation and bronchodilators as needed. Dr. Monroy is following in infection disease consultation. - Severe sepsis secondary to CAP, resolved. - Hypertension. Continue Toprol-XL. - Dyslipidemia. Continue Lipitor. - Benign prostatic hypertrophy, continue Proscar and Uroxatral. - L glaucoma - h/o R retinal detachment Further recommendations based on clinical course. Plan of care discussed with Dr. Ott. Result Diagram: 09/24/18 0455 09/24/18 0455 Results 24hrs Laboratory Tests Test 09/25/18 09:52 Lab Scanned Report REFERENCE LAB Exam/Review of Systems Exam Vitals Vital Signs Date Temp Pulse Resp B/P (MAP) Pulse Ox O2 O2 Flow FiO2 Time Delivery Rate 09/25/18 98.3 71 18 154/82 97 15:54 (106) 09/25/18 Nasal 6.0 13:10 Cannula 09/24/18 40 00:53 Intake and Output 09/24/18 09/24/18 09/25/18 1515:00 23:00 07:00 IntakeIntake Total 360 ml 600 ml 300 ml OutputOutput Total 350 ml 201 ml BalanceBalance 10 ml 399 ml 300 ml Constitutional: alert, oriented Head: normocephalic Eyes: other (Right eye blindness) Respiratory: diminished breath sounds Cardiovascular: regular rate and rhythm Gastrointestinal: soft, non-tender Extremities: normal pulses Neurological: nl mental status Skin: nl turgor Results Results 24hrs Laboratory Tests Test 09/25/18 09:52 Lab Scanned Report REFERENCE LAB Medications Medication Current Medications Ceftriaxone Sodium 50 ml @ 100 mls/hr DAILY@2100 IVPB Last administered on 09/24/18at 21:01; Admin Dose 100 MLS/HR; Start 09/22/18 at 21:00 Azithromycin (Zithromax) 500 mg DAILY PO Last administered on 09/25/18at 08:31; Admin Dose 500 MG; Start 09/22/18 at 15:30 Acetaminophen (Tylenol Tab) 500 mg Q4H PRN PO MILD PAIN(1-3)OR ELEVATED TEMP Last administered on 09/25/18 01:01; Admin Dose 500 MG; Start 09/22/18 at 18:30 Alfuzosin HCl (Uroxatral) 10 mg QHS PO Last administered on 09/24/18 21:01; Admin Dose 10 MG; Start 09/22/18 at 21:00 Atorvastatin Calcium (Lipitor) 10 mg QHS PO Last administered on 09/24/18 21:01; Admin Dose 10 MG; Start 09/22/18 at 21:00 Finasteride (Proscar) 5 mg DAILY PO Last administered on 09/25/18 08:31; Admin Dose 5 MG; Start 09/23/18 at 09:00 Metoprolol Succinate (Toprol Xl) 100 mg DAILY PO Last administered on 09/25/18 08:32; Admin Dose 100 MG; Start 09/23/18 at 09:00 Albuterol/ Ipratropium (Duoneb) 3 ml Q4H RESP THERAPY HHN Last administered on 09/25/18 13:04; Admin Dose 3 ML; Start 09/23/18 at 05:00 Albuterol (Proventil 0.083% (Neb)) 2.5 mg Q2H RESP THERAPY PRN HHN SHORTNESS OF BREATH Last administered on 09/24/18 15:28; Admin Dose 2.5 MG; Start 09/23/18 at 02:00 Docusate Sodium (Colace) 100 mg HS PRN PO constipation Last administered on 09/23/18 20:49; Admin Dose 100 MG; Start 09/23/18 at 17:30 Guaifenesin/ Dextromethorphan (Robitussin Dm Liquid Cup) 10 ml Q4H PRN PO cough Last administered on 09/25/18 11:43; Admin Dose 10 ML; Start 09/24/18 at 11:00 Ibuprofen (Motrin) 400 mg Q6H PRN PO MILD PAIN(1-3) OR TEMP>38C; Start 09/24/18 at 11:00 Brimonidine/ Timolol (Combigan Oph) 1 drop BID@0700,1600 LEFT EYE Last administered on 7/1/19at 17:08; Admin Dose 1 DROP; Start 09/25/18 at 16:00 ASTER MCCARTHY Sep 25, 2018 18:01
[2018-09-25 19:55] VITALS: BP 169/89; PULSE 80; RESP 18
[2018-09-25] MEDS: ATORVASTATIN 10 MG TAB PO SCH (20:41)
[2018-09-25] MEDS: ALFUZOSIN (SR) 10 MG TAB PO SCH (20:41)
[2018-09-25] MEDS: CEFTRIAXONE 1 GM/50 ML (PMX) 50 ML IVPB SCH (20:41)
[2018-09-25] MEDS: AMLODIPINE 5 MG TAB PO SCH (21:19)
[2018-09-26] VITALS (7 sets, daily range): BP systolic 122–147; BP diastolic 61–81; PULSE 76–89; RESP 16–18
[2018-09-26] MEDS: ALBUTEROL/IPRATROPIUM (NEB) 3 ML AMP HHN SCH ×6 (00:52→20:30)
[2018-09-26] MEDS: ACETAMINOPHEN 500 MG TAB PO PRN (03:01)
[2018-09-26] MEDS: BRIMONIDINE 0.2%-TIMOLOL 0.5% 5ML OPH LEFT EYE SCH ×2 (06:13→16:20)
[2018-09-26] MEDS: AMLODIPINE 5 MG TAB PO SCH (08:57)
[2018-09-26] MEDS: AZITHROMYCIN 500 MG TAB PO SCH (08:57)
[2018-09-26] MEDS: FINASTERIDE 5 MG TAB PO SCH (08:57)
[2018-09-26] MEDS: METOPROLOL (XL) 100 MG TAB PO SCH (08:57)
--- NOTE | 2018-09-26 15:32 | CONS ---
Assessment/Plan Assessment/Plan Hospital Course (Demo Recall) - severe sepsis due to CAP - fever and leukocytosis resolved - RLL CAP probably following viral bronchitis - acute hypoxic respiratory failure - on O2 via NC - L glaucoma - h/o R retinal detachment - constipation, resolved recommendations - so far negative: blood cultures x2, urine legionella antigen, influenza, parainfluenza, RSV, adenovirus - pending results: mycoplasma serology - continue ceftriaxone and azithromycin (09/22/2018-) - serial CXR - procalc am ordered - sputum cx ordered - if continues to improve at this rate consider d/c with po Levaquin x 5-7 days tmrw Consultation Date/Type/Reason Admit Date/Time Sep 22, 2018 at 14:56 Initial Consult Date 09/22/18 Requesting Provider: JO REARDON MD Date/Time of Note DATE: 09/26/18 TIME: 15:29 Exam/Review of Systems Exam Vitals Vital Signs Date Temp Pulse Resp B/P (MAP) Pulse Ox O2 O2 Flow FiO2 Time Delivery Rate 09/26/18 97.7 87 16 147/81 93 15:12 (103) 09/26/18 Nasal 3.0 08:15 Cannula 09/24/18 40 00:53 Intake and Output 09/25/18 09/25/18 09/26/18 1515:00 23:00 07:00 IntakeIntake Total 233 ml 650 ml 800 ml OutputOutput Total 600 ml BalanceBalance -367 ml 650 ml 800 ml Constitutional: alert, oriented, well developed Psych: no complaints, nl mood/affect Eyes: nl conjunctiva, EOMI, nl lids, nl sclera, PERRL Respiratory: diminished breath sounds Cardiovascular: regular rate and rhythm, nl pulses Gastrointestinal: soft, nl liver, spleen, non-tender Musculoskeletal: nl extremities to inspection Neurological: [employer] II-XII intact Results Result Diagram: 09/26/18 0500 09/26/18 0500 Results 24hrs Laboratory Tests Test 09/26/18 05:00 White Blood Count 10.2 Red Blood Count 3.85 L Hemoglobin 11.4 L Hematocrit 34.0 L Mean Corpuscular Volume 88.3 Mean Corpuscular Hemoglobin 29.6 Mean Corpuscular Hemoglobin Concent 33.5 Red Cell Distribution Width 13.9 Platelet Count 349 # Mean Platelet Volume 8.5 Immature Granulocytes % 2.100 H Neutrophils % Segmented Neutrophils % (Manual) 67 Band Neutrophils % (Manual) 6 H Lymphocytes % Lymphocytes % (Manual) 14 L Reactive Lymphocytes % (Manual) 3 H Monocytes % Monocytes % (Manual) 7 Eosinophils % Eosinophils % (Manual) 1 Basophils % Metamyelocytes % (manual) 2 H Nucleated Red Blood Cells % 0.0 Immature Granulocytes # 0.210 H Neutrophils # Neutrophils # (Manual) 6.9 Band Neutrophils # 0.6 Lymphocytes (Manual) 1.4 Lymphocytes # Reactive Lymphocytes # 0.3 H Monocytes # Monocytes # (Manual) 0.7 Eosinophils # Basophils # Metamyelocytes # 0.2 H Nucleated Red Blood Cells # Platelet Estimate NORMAL Polychromasia 3+ Sodium Level 140 Potassium Level 4.4 Chloride Level 106 Carbon Dioxide Level 28 Anion Gap 6 Blood Urea Nitrogen 11 Creatinine 0.66 Est Glomerular Filtrat Rate mL/min Glucose Level 102 Calcium Level 7.9 L Medications Medication Current Medications Ceftriaxone Sodium 50 ml @ 100 mls/hr DAILY@2100 IVPB Last administered on 09/25/18 20:41; Admin Dose 100 MLS/HR; Start 09/22/18 at 21:00 Azithromycin (Zithromax) 500 mg DAILY PO Last administered on 09/26/18 08:57; Admin Dose 500 MG; Start 09/22/18 at 15:30 Acetaminophen (Tylenol Tab) 500 mg Q4H PRN PO MILD PAIN(1-3)OR ELEVATED TEMP Last administered on 09/26/18 03:01; Admin Dose 500 MG; Start 09/22/18 at 18:30 Alfuzosin HCl (Uroxatral) 10 mg QHS PO Last administered on 09/25/18 20:41; Ad min Dose 10 MG; Start 09/22/18 at 21:00 Atorvastatin Calcium (Lipitor) 10 mg QHS PO Last administered on 09/25/18 20:41; Admin Dose 10 MG; Start 09/22/18 at 21:00 Finasteride (Proscar) 5 mg DAILY PO Last administered on 09/26/18 08:57; Admin Dose 5 MG; Start 09/23/18 at 09:00 Metoprolol Succinate (Toprol Xl) 100 mg DAILY PO Last administered on 09/26/18 08:57; Admin Dose 100 MG; Start 09/23/18 at 09:00 Albuterol/ Ipratropium (Duoneb) 3 ml Q4H RESP THERAPY HHN Last administered on 09/26/18 13:31; Admin Dose 3 ML; Start 09/23/18 at 05:00 Albuterol (Proventil 0.083% (Neb)) 2.5 mg Q2H RESP THERAPY PRN HHN SHORTNESS OF BREATH Last administered on 09/24/18 15:28; Admin Dose 2.5 MG; Start 09/23/18 at 02:00 Docusate Sodium (Colace) 100 mg HS PRN PO constipation Last administered on 09/23/18 20:49; Admin Dose 100 MG; Start 09/23/18 at 17:30 Guaifenesin/ Dextromethorphan (Robitussin Dm Liquid Cup) 10 ml Q4H PRN PO cough Last administered on 09/25/18 22:09; Admin Dose 10 ML; Start 09/24/18 at 11:00 Ibuprofen (Motrin) 400 mg Q6H PRN PO MILD PAIN(1-3) OR TEMP>38C Last administered on 09/26/18 05:47; Admin Dose 400 MG; Start 09/24/18 at 11:00 Brimonidine/ Timolol (Combigan Oph) 1 drop BID@0700,1600 LEFT EYE Last administered on 09/26/18 06:13; Admin Dose 1 DROP; Start 09/25/18 at 16:00 Amlodipine Besylate (Norvasc) 5 mg BID PO Last administered on 09/25/18 21:19; Admin Dose 5 MG; Start 09/25/18 at 21:00 IMER HOWARD MD Sep 26, 2018 15:32
--- NOTE | 2018-09-26 15:40 | PN ---
Date/Time of Note Date/Time of Note DATE: 09/26/18 TIME: 15:37 Assessment/Plan VTE Prophylaxis Risk score (from Ns)>0 risk: 4 SCD applied (from Ns): Yes Pharmacological prophylaxis: LMWH Lines/Catheters [facility] Saline Lock Assessment/Plan Hospital Course Patient continues on supplemental oxygen with some occasional calf, denies any shortness of breath denies chest pain, remains afebrile. Assessment/Plan - Community-acquired pneumonia. Continue Rocephin and Zithromax. Continue oxygen supplementation and bronchodilators as needed. Dr. Monroy is following in infection disease consultation. - Severe sepsis secondary to CAP, resolved. - Hypertension. Continue Toprol-XL. - Dyslipidemia. Continue Lipitor. - Benign prostatic hypertrophy, continue Proscar and Uroxatral. - L glaucoma - h/o R retinal detachment Further recommendations based on clinical course. Plan of care discussed with Dr. Ott. Result Diagram: 09/26/18 0500 09/26/18 0500 Results 24hrs Laboratory Tests Test 09/26/18 05:00 White Blood Count 10.2 Red Blood Count 3.85 L Hemoglobin 11.4 L Hematocrit 34.0 L Mean Corpuscular Volume 88.3 Mean Corpuscular Hemoglobin 29.6 Mean Corpuscular Hemoglobin Concent 33.5 Red Cell Distribution Width 13.9 Platelet Count 349 # Mean Platelet Volume 8.5 Immature Granulocytes % 2.100 H Neutrophils % Segmented Neutrophils % (Manual) 67 Band Neutrophils % (Manual) 6 H Lymphocytes % Lymphocytes % (Manual) 14 L Reactive Lymphocytes % (Manual) 3 H Monocytes % Monocytes % (Manual) 7 Eosinophils % Eosinophils % (Manual) 1 Basophils % Metamyelocytes % (manual) 2 H Nucleated Red Blood Cells % 0.0 Immature Granulocytes # 0.210 H Neutrophils # Neutrophils # (Manual) 6.9 Band Neutrophils # 0.6 Lymphocytes (Manual) 1.4 Lymphocytes # Reactive Lymphocytes # 0.3 H Monocytes # Monocytes # (Manual) 0.7 Eosinophils # Basophils # Metamyelocytes # 0.2 H Nucleated Red Blood Cells # Platelet Estimate NORMAL Polychromasia 3+ Sodium Level 140 Potassium Level 4.4 Chloride Level 106 Carbon Dioxide Level 28 Anion Gap 6 Blood Urea Nitrogen 11 Creatinine 0.66 Est Glomerular Filtrat Rate mL/min Glucose Level 102 Calcium Level 7.9 L Exam/Review of Systems Exam Vitals Vital Signs Date Temp Pulse Resp B/P (MAP) Pulse Ox O2 O2 Flow FiO2 Time Delivery Rate 09/26/18 97.7 87 16 147/81 93 15:12 (103) 09/26/18 Nasal 3.0 08:15 Cannula 09/24/18 40 00:53 Intake and Output 09/25/18 09/25/18 09/26/18 1515:00 23:00 07:00 IntakeIntake Total 233 ml 650 ml 800 ml OutputOutput Total 600 ml BalanceBalance -367 ml 650 ml 800 ml Exam Constitutional: alert, oriented Head: normocephalic Eyes: other (Right eye blindness) Respiratory: diminished breath sounds Cardiovascular: regular rate and rhythm Gastrointestinal: soft, non-tender Extremities: normal pulses Neurological: nl mental status Skin: nl turgor Results Results 24hrs Laboratory Tests Test 09/26/18 05:00 White Blood Count 10.2 Red Blood Count 3.85 L Hemoglobin 11.4 L Hematocrit 34.0 L Mean Corpuscular Volume 88.3 Mean Corpuscular Hemoglobin 29.6 Mean Corpuscular Hemoglobin Concent 33.5 Red Cell Distribution Width 13.9 Platelet Count 349 # Mean Platelet Volume 8.5 Immature Granulocytes % 2.100 H Neutrophils % Segmented Neutrophils % (Manual) 67 Band Neutrophils % (Manual) 6 H Lymphocytes % Lymphocytes % (Manual) 14 L Reactive Lymphocytes % (Manual) 3 H Monocytes % Monocytes % (Manual) 7 Eosinophils % Eosinophils % (Manual) 1 Basophils % Metamyelocytes % (manual) 2 H Nucleated Red Blood Cells % 0.0 Immature Granulocytes # 0.210 H Neutrophils # Neutrophils # (Manual) 6.9 Band Neutrophils # 0.6 Lymphocytes (Manual) 1.4 Lymphocytes # Reactive Lymphocytes # 0.3 H Monocytes # Monocytes # (Manual) 0.7 Eosinophils # Basophils # Metamyelocytes # 0.2 H Nucleated Red Blood Cells # Platelet Estimate NORMAL Polychromasia 3+ Sodium Level 140 Potassium Level 4.4 Chloride Level 106 Carbon Dioxide Level 28 Anion Gap 6 Blood Urea Nitrogen 11 Creatinine 0.66 Est Glomerular Filtrat Rate mL/min Glucose Level 102 Calcium Level 7.9 L Medications Medication Current Medications Ceftriaxone Sodium 50 ml @ 100 mls/hr DAILY@2100 IVPB Last administered on 09/25/18at 20:41; Admin Dose 100 MLS/HR; Start 09/22/18 at 21:00 Azithromycin (Zithromax) 500 mg DAILY PO Last administered on 09/26/18 08:57; Admin Dose 500 MG; Start 09/22/18 at 15:30 Acetaminophen (Tylenol Tab) 500 mg Q4H PRN PO MILD PAIN(1-3)OR ELEVATED TEMP Last administered on 09/26/18 03:01; Admin Dose 500 MG; Start 09/22/18 at 18:30 Alfuzosin HCl (Uroxatral) 10 mg QHS PO Last administered on 09/25/18 20:41; Admin Dose 10 MG; Start 09/22/18 at 21:00 Atorvastatin Calcium (Lipitor) 10 mg QHS PO Last administered on 09/25/18 20:41; Admin Dose 10 MG; Start 09/22/18 at 21:00 Finasteride (Proscar) 5 mg DAILY PO Last administered on 09/26/18 08:57; Admin Dose 5 MG; Start 09/23/18 at 09:00 Metoprolol Succinate (Toprol Xl) 100 mg DAILY PO Last administered on 09/26/18 08:57; Admin Dose 100 MG; Start 09/23/18 at 09:00 Albuterol/ Ipratropium (Duoneb) 3 ml Q4H RESP THERAPY HHN Last administered on 09/26/18 13:31; Admin Dose 3 ML; Start 09/23/18 at 05:00 Albuterol (Proventil 0.083% (Neb)) 2.5 mg Q2H RESP THERAPY PRN HHN SHORTNESS OF BREATH Last administered on 09/24/18 15:28; Admin Dose 2.5 MG; Start 09/23/18 at 02:00 Docusate Sodium (Colace) 100 mg HS PRN PO constipation Last administered on 09/23/18 20:49; Admin Dose 100 MG; Start 09/23/18 at 17:30 Guaifenesin/ Dextromethorphan (Robitussin Dm Liquid Cup) 10 ml Q4H PRN PO cough Last administered on 09/25/18 22:09; Admin Dose 10 ML; Start 09/24/18 at 11:00 Ibuprofen (Motrin) 400 mg Q6H PRN PO MILD PAIN(1-3) OR TEMP>38C Last administered on 7/2/19at 05:47; Admin Dose 400 MG; Start 09/24/18 at 11:00 Brimonidine/ Timolol (Combigan Oph) 1 drop BID@0700,1600 LEFT EYE Last administered on 09/26/18at 06:13; Admin Dose 1 DROP; Start 09/25/18 at 16:00 Amlodipine Besylate (Norvasc) 5 mg BID PO Last administered on 09/25/18at 21:19; Admin Dose 5 MG; Start 09/25/18 at 21:00 ASTER MCCARTHY Sep 26, 2018 15:40
[2018-09-26] MEDS ORDERED: AMLODIPINE 2.5 MG TAB PO SCH (18:30)
[2018-09-26] MEDS: ALFUZOSIN (SR) 10 MG TAB PO SCH (20:20)
[2018-09-26] MEDS: CEFTRIAXONE 1 GM/50 ML (PMX) 50 ML IVPB SCH (20:20)
[2018-09-26] MEDS: AMLODIPINE 2.5 MG TAB PO SCH (20:21)
[2018-09-26] MEDS: ATORVASTATIN 10 MG TAB PO SCH (20:22)
[2018-09-27] VITALS: BP 134/63; PULSE 90; RESP 19
[2018-09-27] MEDS: ALBUTEROL/IPRATROPIUM (NEB) 3 ML AMP HHN SCH ×5 (01:21→16:32)
[2018-09-27 03:36] VITALS: BP 148/78; PULSE 94; RESP 20
[2018-09-27] MEDS: BRIMONIDINE 0.2%-TIMOLOL 0.5% 5ML OPH LEFT EYE SCH ×2 (06:09→16:36)
[2018-09-27 07:30] VITALS: BP 149/86; PULSE 92; RESP 20
[2018-09-27] MEDS: AZITHROMYCIN 500 MG TAB PO SCH (09:13)
[2018-09-27] MEDS: AMLODIPINE 2.5 MG TAB PO SCH (09:15)
[2018-09-27] MEDS: METOPROLOL (XL) 100 MG TAB PO SCH (09:15)
[2018-09-27] MEDS: FINASTERIDE 5 MG TAB PO SCH (09:15)
--- NOTE | 2018-09-27 11:08 | CONS ---
[facility] [place] Patient Name: Edy George Unit Number: [id number] Date of : 1945 Patient Status: Admitted Inpatient Attending Doctor: Cortes Ott MD Edit: ALANA SHETTY M.D. on 09/29/18 @ 08:04 Diogenes: I discussed the management with [employer] F[employer] Koko and agree Assessment/Plan Assessment/Plan Hospital Course (Demo Recall) - severe sepsis due to CAP - fever and leukocytosis resolved - RLL CAP probably following viral bronchitis - acute hypoxic respiratory failure - on O2 via NC - L glaucoma - h/o R retinal detachment - constipation, resolved recommendations - so far negative: blood cultures x2, urine legionella antigen, influenza, parainfluenza, RSV, adenovirus - pending results: mycoplasma serology - continue ceftriaxone and azithromycin (09/22/2018-) - serial CXR - if continues to improve at this rate consider d/c with po Levaquin x 5 days. - Pt to follow up in our office with Dr. shetty next week - an appointment has already been rescheduled for him, I gave him our card to call our office for this. Plan was d/w patient and with Dr. Shetty. Consultation Date/Type/Reason Admit Date/Time Sep 22, 2018 at 14:56 Initial Consult Date 09/22/18 Type of Consult ID Requesting Provider: JO REARDON MD Date/Time of Note DATE: 09/27/18 TIME: 11:04 24 HR Interval Summary Free Text/Dictation Patient reports a dry cough, clear phlegm occasional expectoration. Denies fevers, chills, sweats, sob at rest or with exertion. Denies cp, palpitations, n/v/d, dysuria, pruritis, or rash. Exam/Review of Systems Exam Vitals Vital Signs Date Temp Pulse Resp B/P (MAP) Pulse Ox O2 O2 Flow FiO2 Time Delivery Rate 09/27/18 21 08:29 09/27/18 96 16 95 08:29 09/27/18 97.9 149/86 Room Air 07:30 (107) 09/26/18 2.0 18:23 Intake and Output 09/26/18 09/26/18 09/27/18 1515:00 23:00 07:00 IntakeIntake Total 800 ml BalanceBalance 800 ml Allergies Coded Allergies No Known Allergy (Unverified09/22/18) Constitutional: alert, oriented, well developed, other (stable gait, stands up for assessment) Psych: no complaints, nl mood/affect Head: normocephalic, atraumatic Eyes: nl conjunctiva, nl lids, other (R eye pupil opaque) ENMT: nl external ears & nose, nl nasal mucosa & septum, mucosa pink and moist (no thrush) Neck: supple, non-tender Respiratory: normal air movement, crackles/rales (mild LLL), diminished breath sounds (bibasilarlly), other (on RA); No wheezing Cardiovascular: regular rate and rhythm, nl pulses Gastrointestinal: soft, non-tender, bowel sounds (normoactive ) Genitourinary - Male: other (no f/c) Musculoskeletal: nl extremities to inspection, nl gait and stance Extremities: normal pulses Neurological: MEDICAL SECRETARY II-XII intact, nl mental status, nl speech, nl strength Skin: nl turgor; No rash or lesions Results Result Diagram: 09/27/18 0510 09/27/18 0510 Results 24hrs Laboratory Tests Test 09/27/18 05:10 White Blood Count 8.8 Red Blood Count 3.71 L Hemoglobin 10.8 L Hematocrit 33.3 L Mean Corpuscular Volume 89.8 Mean Corpuscular Hemoglobin 29.1 Mean Corpuscular Hemoglobin Concent 32.4 Red Cell Distribution Width 13.6 Platelet Count 350 Mean Platelet Volume 8.6 Immature Granulocytes % 1.400 H Neutrophils % Segmented Neutrophils % (Manual) 63 Lymphocytes % Lymphocytes % (Manual) 30 Monocytes % Monocytes % (Manual) 6 Eosinophils % Eosinophils % (Manual) 1 Basophils % Nucleated Red Blood Cells % 0.0 Immature Granulocytes # 0.120 H Neutrophils # Lymphocytes (Manual) 2.6 Lymphocytes # 2.6 Monocytes # 0.5 Monocytes # (Manual) 0.5 Eosinophils # 0.1 Basophils # Nucleated Red Blood Cells # Sodium Level 140 Potassium Level 4.7 Chloride Level 106 Carbon Dioxide Level 26 Anion Gap 8 Blood Urea Nitrogen 14 Creatinine 0.71 Est Glomerular Filtrat Rate mL/min Glucose Level 97 Calcium Level 8.1 L Procalcitonin 0.06 Imaging Imaging CXR 09/25/18 IMPRESSION: There is right lung base consolidation. There are increased interstitial markings. Follow-up to resolution recommended to exclude underlying neoplasm. Medications Medication Current Medications Ceftriaxone Sodium 50 ml @ 100 mls/hr DAILY@2100 IVPB Last administered on 09/26/18 20:20; Admin Dose 100 MLS/HR; Start 09/22/18 at 21:00 Azithromycin (Zithromax) 500 mg DAILY PO Last administered on 09/27/18 09:13; Admin Dose 500 MG; Start 09/22/18 at 15:30 Acetaminophen (Tylenol Tab) 500 mg Q4H PRN PO MILD PAIN(1-3)OR ELEVATED TEMP Last administered on 09/26/18 03:01; Admin Dose 500 MG; Start 09/22/18 at 18:30 Alfuzosin HCl (Uroxatral) 10 mg QHS PO Last administered on 09/26/18 20:20; Admin Dose 10 MG; Start 09/22/18 at 21:00 Atorvastatin Calcium (Lipitor) 10 mg QHS PO Last administered on 09/26/18 20:22; Admin Dose 10 MG; Start 09/22/18 at 21:00 Finasteride (Proscar) 5 mg DAILY PO Last administered on 09/27/18 09:15; Admin Dose 5 MG; Start 09/23/18 at 09:00 Metoprolol Succinate (Toprol Xl) 100 mg DAILY PO Last administered on 09/27/18 09:15; Admin Dose 100 MG; Start 09/23/18 at 09:00 Albuterol/ Ipratropium (Duoneb) 3 ml Q4H RESP THERAPY HHN Last administered on 09/27/18 08:36; Admin Dose 3 ML; Start 09/23/18 at 05:00 Albuterol (Proventil 0.083% (Neb)) 2.5 mg Q2H RESP THERAPY PRN HHN SHORTNESS OF BREATH Last administered on 09/24/18 15:28; Admin Dose 2.5 MG; Start 09/23/18 at 02:00 Docusate Sodium (Colace) 100 mg HS PRN PO constipation Last administered on 09/23/18 20:49; Admin Dose 100 MG; Start 09/23/18 at 17:30 Guaifenesin/ Dextromethorphan (Robitussin Dm Liquid Cup) 10 ml Q4H PRN PO cough Last administered on 09/25/18 22:09; Admin Dose 10 ML; Start 09/24/18 at 11:00 Ibuprofen (Motrin) 400 mg Q6H PRN PO MILD PAIN(1-3) OR TEMP>38C Last administered on 09/26/18 05:47; Admin Dose 400 MG; Start 09/24/18 at 11:00 Brimonidine/ Timolol (Combigan Oph) 1 drop BID@0700,1600 LEFT EYE Last administered on 09/27/18 06:09; Admin Dose 1 DROP; Start 09/25/18 at 16:00 Amlodipine Besylate (Norvasc) 2.5 mg BID PO Last administered on 09/27/18 09:15; Admin Dose 2.5 MG; Start 09/26/18 at 19:30 VINI SHEPPARD NP Sep 27, 2018 11:08
[2018-09-27 11:25] VITALS: BP 149/81; PULSE 95; RESP 18
[2018-09-27] MEDS ORDERED: AMLO2.5T78 PO (13:26)
[2018-09-27] MEDS ORDERED: LEVO750T25 PO (13:26)
[2018-09-27 15:05] VITALS: BP 137/85; PULSE 91; RESP 20
[2018-09-27] MEDS: CEFTRIAXONE 1 GM/50 ML (PMX) 50 ML IVPB SCH (18:03)
--- NOTE | 2018-09-27 18:15 | DS ---
Date/Time of Note Date/Time of Note DATE: 09/27/18 TIME: 18:11 Discharge Summary Admission/Discharge Info Admit Date/Time Sep 22, 2018 at 14:56 Discharge Date/Time Patient Condition: Stable Hx of Present Illness The patient is a 73-year-old gentleman well known to me from previous admission. The patient's underlying medical condition include hypertension, dyslipidemia, BPH, and glaucoma. The patient came to ER with cough, chest congestion and high fever. The patient reported that on 09/15/2018, he started having fever as high as 103 accompanied by cough, fatigue, malaise and shortness of breath. The patient did not have any chest pain or hemoptysis. No reported headache, dizziness or syncope. No history of sore throat. No history of a bdominal pain. No history of nausea or vomiting. No history of recent travel. No history of leg edema. No history of focal weakness. 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 The patient denied any history of numbness, tingling, or any weakness in any extremity. His BPH symptoms are well controlled with the medications. Hospital Course Recommended to complete 7 days of Rocephin however patient is adamant about going home stated improvement overall condition. Will DC with prescription for Levaquin for 7 more days per ID recommendations. - Community-acquired pneumonia. Continue Rocephin and Zithromax. Continue oxygen supplementation and bronchodilators as needed. Dr. Monroy is following in infection disease consultation. - Severe sepsis secondary to CAP, resolved. - Hypertension. Continue Toprol-XL. - Dyslipidemia. Continue Lipitor. - Benign prostatic hypertrophy, continue Proscar and Uroxatral. - L glaucoma - h/o R retinal detachment Plan of care discussed with Dr. Ott. Home Meds Active Scripts Levofloxacin* (Levaquin*) 750 Mg Tablet, 750 MG PO DAILY for 7 Days, TAB Prov:ASTER MCCARTHY 09/27/18 Amlodipine Besylate* (Amlodipine Besylate*) 2.5 Mg Tablet, 2.5 MG PO BID for 30 Days, TAB Prov:ASTER MCCARTHY 09/27/18 Reported Medications [Rocklatan ] 0.02% DROPS No Conflict Check, 1 DROP LEFT EYE DAILY 09/22/18 Brimonidine/Timolol* (Combigan*) 5 Ml Drops, 1 DROP LEFT EYE BID, BOTTLE 09/22/18 Alfuzosin Hcl* (Alfuzosin Hcl*) 10 Mg Tab.er.24h, 10 MG PO QHS, #30 TAB.SA 09/22/18 Metoprolol Succinate* (Toprol XL*) 100 Mg Tab.sr.24h, 100 MG PO DAILY, #30 TAB 09/22/18 Finasteride* (Finasteride*) 5 Mg Tablet, 5 MG PO DAILY, TAB 09/22/18 Atorvastatin Calcium (Atorvastatin Calcium) 10 Mg Tablet, 10 MG PO QHS, #30 TAB 09/22/18 Discontinued Reported Medications Atorvastatin Calcium (Atorvastatin Calcium) 10 Mg Tablet, 5 MG PO DAILY 10/07/13 Finasteride* (Proscar*) 5 Mg Tablet, 5 MG PO DAILY 10/07/13 Metoprolol Succinate* (Toprol XL*) 25 Mg Tab.sr.24h, 12.5 MG PO DAILY 10/07/13 Aspirin (Aspirin) 81 Mg Chew, 81 MG PO DAILY 10/07/13 Follow-up Plan Discharge after today's dose of ceftriaxone, follow-up with PMD or Dr. Winn, ID in 3 weeks, chest x-ray in 3 weeks. Primary Care Provider Not On Staff Doctor Time spent on discharge: > 30 minutes Pending Labs Laboratory Tests Test 09/27/18 05:10 White Blood Count 8.8 10^3/ul (4.8-10.8) Red Blood Count 3.71 10^6/ul (4.70-6.10) Hemoglobin 10.8 g/dl (14.0-18.0) Hematocrit 33.3 % (42.0-52.0) Mean Corpuscular Volume 89.8 fl (82.0-101.0) Mean Corpuscular Hemoglobin 29.1 pg (29.0-33.0) Mean Corpuscular Hemoglobin Concent 32.4 g/dl (32.0-37.0) Red Cell Distribution Width 13.6 % (11.5-14.5) Platelet Count 350 10^3/UL (140-415) Mean Platelet Volume 8.6 fl (7.4-10.4) Immature Granulocytes % 1.400 % (0.001-0.429) Neutrophils % % (39.0-77.0) Segmented Neutrophils % (Manual) 63 % (39-77) Lymphocytes % % (15.0-51.0) Lymphocytes % (Manual) 30 % (15-51) Monocytes % % (0.0-11.0) Monocytes % (Manual) 6 % (0-11) Eosinophils % % (0.0-7.0) Eosinophils % (Manual) 1 % (0.0-7.0) Basophils % % (0.0-2.0) Nucleated Red Blood Cells % 0.0 /100WBC (0.0-0.0) Immature Granulocytes # 0.120 10^3/ul (0.0-0.031) Neutrophils # 10^3/ul (1.6-7.5) Lymphocytes (Manual) 2.6 10^3/ul (0.8-2.9) Lymphocytes # 2.6 10^3/ul (0.8-2.9) Monocytes # 0.5 10^3/ul (0.3-0.9) Monocytes # (Manual) 0.5 10^3/ul (0.3-0.9) Eosinophils # 0.1 10^3/ul (0.0-0.5) Basophils # 10^3/ul (0.0-0.1) Nucleated Red Blood Cells # 10^3/ul (0.0-0.0) Sodium Level 140 mmol/L (135-144) Potassium Level 4.7 mmol/L (3.5-5.1) Chloride Level 106 mmol/L (97-110) Carbon Dioxide Level 26 mmol/L (21-31) Anion Gap 8 (5-13) Blood Urea Nitrogen 14 mg/dl (7-20) Creatinine 0.71 mg/dl (0.61-1.24) Est Glomerular Filtrat Rate mL/min mL/min (>60) Glucose Level 97 mg/dl (70-220) Calcium Level 8.1 mg/dl (8.4-10.2) Procalcitonin 0.06 ng/mL (0.00-0.10) ASTER MCCARTHY Sep 27, 2018 18:15
== END 2018-09-27 19:00 | disposition home or self-care (01) | DRG 871 ==
LOC: E/R 12:38 → 6WM 14:56
PROVIDERS: ADMIT Internal Medicine; ATTEND Internal Medicine
DX: A41.9 Sepsis, unspecified organism (principal); J18.9 Pneumonia, unspecified organism; J96.01 Acute respiratory failure with hypoxia; I10 Essential (primary) hypertension; H40.9 Unspecified glaucoma; E78.5 Hyperlipidemia, unspecified; N40.0 Benign prostatic hyperplasia without lower urinary tract symptoms; R65.20 Severe sepsis without septic shock; Z79.82 Long term (current) use of aspirin
CPT/HCPCS: 36415; 36600; 71045; 80048; 80053; 81001; 82150; 82803; 83605; 83690; 84145; 84484; 85025; 85610; 85730; 86738; 87070; 87086; 87275; 87276; 87279; 87280; 87400; 87449; 93005; 94640; 94660; 94664; 96374; 96375; J0692; J0696; J3370; J7030